=== PATIENT | male | born 1995 | race Caucasian/White ===

== ENCOUNTER 2016-07-11 04:00 | Emergency (ER) | payer SELFPAY ==
[~2016-07-11] VITALS: Ht 175.3 cm; Wt 75.5 kg
[2016-07-11 04:05] VITALS: Ht 175.3 cm; Wt 75.5 kg
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
[2016-07-11 04:46] LABS: URINE BLOOD (Dip) POC Negative (NEGATIVE)
[2016-07-11 04:59] LABS: ADD SCAN DIFF NO
[2016-07-11 05:00] LABS: BASOPHILS % 0.3 % (0.0-2.0); EOSINOPHILS % 0.3 % (0.0-7.0); HEMATOCRIT 42.6 % (42.0-52.0); HEMOGLOBIN 14.5 g/dl (14.0-18.0); LYMPHOCYTES # 2.9 10^3/ul (0.8-2.9); LYMPHOCYTES % 29.2 % (15.0-51.0); MEAN CORPUSCULAR HEMOGLOBIN 30.9 pg (29.0-33.0); MEAN CORPUSCULAR VOLUME 90.6 fl (82.0-101.0); MEAN PLATELET VOLUME 8.7 fl (7.4-10.4); MONOCYTE # 0.9 10^3/ul (0.3-0.9); NEUTROPHIL # 6.1 10^3/ul (1.6-7.5); PLATELET COUNT 395 10^3/UL (140-415); RED CELL DISTRIBUTION WIDTH 13.2 % (11.5-14.5); WHITE BLOOD COUNT 10.1 10^3/ul (4.8-10.8)
--- NOTE | 2016-07-11 05:00 | RADRPT ---
PROCEDURE: CT Abdomen and pelvis without contrast. CLINICAL INDICATION: Abdominal pain. TECHNIQUE: CT scan of the abdomen and pelvis was performed on a multi-detector high-resolution CT scanner. Contiguous axial images were obtained from the lung bases to the ischial tuberosities wit hout intravenous contrast. Coronal and sagittal reformatted images were also obtained. Images were reviewed on the PACS workstation. One or more of the following dose reduction techniques were used: - Automated exposure control. - Adjustment of the mA and/or kV according to patient size. - Use of iterative reconstruction technique. Exam CTD/vol = 7.74 mGy. Total exam DLP = 477.09 mGy-cm. COMPARISON: None. FINDINGS: Evaluation of the lung bases demonstrates no pleural or parenchymal disease. Abdomen: The liver is normal in size. There is no focal mass or dilatation of the biliary tree. T he gallbladder is not distended. There are small dystrophic calcifications within the pancreatic klaus l. The patient is status post splenectomy with a splenule noted within the left upper abdomen. Bila teral adrenal glands are within normal limits. There is prior partial left lower nephrectomy with me tallic sutures present. The right kidney is normal in size. There is no contour deforming renal mas s identified. There is no radiopaque renal or ureteral calculus identified. There is no hydronephr osis or hydroureter. There is no retroperitoneal adenopathy. The abdominal aorta is of normal kenia rai. There is no abnormal bowel wall thickening or distension. There is no bowel obstruction or free air . A normal appendix is identified. There is no diverticulosis or diverticulitis. There is no asci olesya. Pelvis: The bladder is unremarkable. The prostate and seminal vesicles are within normal limits. There is no significant pelvic adenopathy or free fluid. Evaluation of the osseous structures demonstrates no suspicious lytic or blastic lesion. IMPRESSION: No acute abnormality identified within the abdomen and pelvis. Status post splenectomy and partial left lower nephrectomy. .Neftali Burleson MD, MD Date Time Electronically viewed and signed by .Neftali Burleson MD, MD on 07/11/2016 04:59 .T/
[2016-07-11 05:32] LABS: ALBUMIN 4.9 g/dl (3.3-4.9)
[2016-07-11 05:33] LABS: POTASSIUM 3.6 mmol/L (3.5-5.1)
[2016-07-11 05:35] LABS: ALBUMIN/GLOBULIN RATIO 1.25; BILIRUBIN,INDIRECT 0.4 mg/dl (0-1.1); BILIRUBIN,TOTAL 0.4 mg/dl (0.2-1.3); CREATININE 1.1 mg/dl (0.61-1.24); TOTAL PROTEIN 8.8 g/dl (6.1-8.1)
[2016-07-11] MEDS ORDERED: POLY17PO6 PO (05:51)
[2016-07-11] MEDS ORDERED: IBUP-1542 PO (05:51)
[2016-07-11 06:06] VITALS: BP 131/79; PULSE 94; RESP 18; TEMP 99.2
== END 2016-07-11 06:06 | disposition home or self-care (01) ==
LOC: E/R 04:00
DX: K59.00 Constipation, unspecified (principal)
CPT/HCPCS: 36415; 74176; 80053; 81003; 83690; 85025